=== PATIENT | male | born 1990 | race Caucasian/White ===

== ENCOUNTER 2018-01-14 20:48 | Emergency (ER) | payer MEDICAID ==
[~2018-01-14] VITALS: Ht 167.6 cm; Wt 115.5 kg
[2018-01-14 21:31] LABS: CLARITY,URINE CLEAR (Clear); COLOR,URINE YELLOW (Yellow); GLUCOSE, URINE NEGATIVE (Neg); KETONES,URINE TRACE mg/dl (Neg); LEUKOCYTE ESTERASE ,URINE NEGATIVE (Neg); NITRITES, URINE NEGATIVE (Neg); OCCULT BLOOD,URINE NEGATIVE (Neg); PROTEIN,URINE NEGATIVE (Neg); UROBILINOGEN,URINE 0.2 E.U/dL (0.2-1.0)
[2018-01-14 21:37] LABS: EOSINOPHILS # (AUTO) 0.1 X10'3 (0-0.9); EOSINOPHILS % (AUTO) 1.1 % (0-6); HEMATOCRIT 49.7 % (42.0-52.0); HEMOGLOBIN 17.1 g/dl (14.0-17.9); LYMPHOCYTES # (AUTO) 1.6 X10'3 (1.1-4.8); LYMPHOCYTES % (AUTO) 31.6 % (21-51); MEAN CORPUSCULAR HEMOGLOBIN 31.6 PG (27.0-31.0); MEAN CORPUSCULAR HGB CONC 34.4 % (33.0-36.5); MEAN CORPUSCULAR VOLUME 91.8 FL (78-98); MEAN PLATELET VOLUME 7.7 FL (7.4-10.4); MONOCYTES # (AUTO) 0.4 X10'3 (0-0.9); MONOCYTES % (AUTO) 6.9 % (2-12); NEUTROPHILS % (AUTO) 59.4 % (42-75); PLATELET COUNT 262 X10'3 (140-440); RED BLOOD COUNT 5.41 X10'6 (4.70-6.10); RED CELL DISTRIBUTION WIDTH 13.5 % (11.5-14.5); WHITE BLOOD COUNT 5.1 X10'3 (4.5-11.0)
[2018-01-14 21:40] LABS: UA COLLECTION TYPE CLN CATCH MIDSTREAM
[2018-01-14 21:48] LABS: PROTHROMBIN TIME 10.5 SECONDS (9.0-12.0)
[2018-01-14 21:53] LABS: ALANINE AMINOTRANSFERASE 93 U/L (12-78); ALBUMIN 3.8 G/DL (3.4-5.0); ALBUMIN/GLOBULIN RATIO 1.1 (1.1-1.5); ALKALINE PHOSPHATASE 64 IU/L (46-116); ANION GAP 7 (8-16); ASPARTATE AMINO TRANSFERASE 32 U/L (10-37); BILIRUBIN,TOTAL 0.6 MG/DL (0.1-1.0); BLOOD UREA NITROGEN 11 MG/DL (7-18); BUN/CREATININE RATIO 13.1 (5.4-32.0); CHLORIDE 105 MMOL/L (99-107); CREATININE 0.84 MG/DL (0.60-1.10); GLUCOSE 131 MG/DL (70-104); POTASSIUM 3.9 MMOL/L (3.5-5.1); SODIUM 141 MMOL/L (135-145); TOTAL CARBON DIOXIDE 29.4 MMOL/L (24-32); TOTAL PROTEIN 7.3 G/DL (6.4-8.2); eGFR > 90 ML/MIN
[2018-01-14 22:24] LABS: LIPASE 119 U/L (73-393)
[2018-01-14] MEDS ORDERED: sucralfate 1gm/10ml UD suspension PO SCH (23:00)
[2018-01-14] MEDS ORDERED: pantoprazole 40mg Tablet.DR PO SCH (23:00)
[2018-01-14] MEDS ORDERED: PANT-47 PO (23:02)
[2018-01-14] MEDS ORDERED: SUCR1TAB34 PO (23:02)
[2018-01-14 23:16] VITALS: BP 139/87
== END 2018-01-14 23:16 | disposition home or self-care (01) ==
LOC: ER 20:49
DX: R10.13 Epigastric pain (principal); R11.0 Nausea; Z88.0 Allergy status to penicillin; Z88.8 Allergy status to other drugs, medicaments and biological substances; Z79.899 Other long term (current) drug therapy
CPT/HCPCS: 36415; 80053; 81003; 83690; 85025; 85610; 99284

== ENCOUNTER 2019-09-26 12:35 | Emergency (ER) | payer MEDICAID ==
[~2019-09-26] VITALS: Ht 165.1 cm; Wt 96.0 kg
[~2019-09-26 12:35] MED LIST: PANT-47 PO; SUCR1TAB34 PO
[2019-09-26 13:20] VITALS: BP 126/77
== END 2019-09-26 13:22 | disposition home or self-care (01) ==
LOC: ER 12:36
DX: K40.90 Unilateral inguinal hernia, without obstruction or gangrene, not specified as recurrent (principal); Z88.0 Allergy status to penicillin; Z91.09 Other allergy status, other than to drugs and biological substances; Z79.899 Other long term (current) drug therapy
CPT/HCPCS: 99281